=== PATIENT | female | born 2000 | race Caucasian/White ===

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

== ENCOUNTER 2022-09-15 06:02 | Emergency (ER) | payer OTHER ==
[2022-09-15 06:21] VITALS: BMI 30.7
[2022-09-15 07:41] VITALS: BP 119/68; PULSE 85; RESP 18; TEMP 98.7
[2022-09-15 10:31] LABS: INR 0.98 (0.83-1.09); PROTHROMBIN TIME (PATIENT) 11.4 SEC (9.7-13.0)
[2022-09-15 10:34] LABS: ACTIVATED PTT 28.9 SECONDS (25.2-36.5)
[2022-10-13] MEDS ORDERED: LABETALOL HCL 20 MG/4 ML VIAL ONE (00:16)
[2022-10-13] MEDS ORDERED: OXYTOCIN 20 UNITS in 0.9% NS 20 UNIT/1,000 ML INFUS.BAG IV ONE (04:32)
== END 2022-09-15 12:35 | disposition home or self-care (01) ==
LOC: JER 06:02
DX: O26.892 Other specified pregnancy related conditions, second trimester (principal); R40.0 Somnolence; Z3A.36 36 weeks gestation of pregnancy
CPT/HCPCS: 0241U-QW; 36415; 85384; 85610; 85730; 99283-25

== ENCOUNTER 2022-10-12 05:15 | Inpatient (IN) | payer OTHER ==
[2022-10-12] MEDS: ELECTROLYTE-148 SOLN 1,000 ML IV SCH ×3 (06:00→20:10)
[2022-10-12 06:11] VITALS: BMI 32.5
[2022-10-12 06:34] LABS: BASO % 0.4 % (0-2.0); EOS % 0.9 % (0-4.5); HEMATOCRIT 33.1 % (32.4-45.2); HEMOGLOBIN 11.7 GM/dL (10.7-15.3); LYMPH % 21.9 % (8-40); MCH 34.4 pg (25.7-33.7); MCHC 35.2 g/dl (32.0-36.0); MEAN CELL VOLUME 97.8 fl (80-96); MEAN PLT VOLUME 8.6 fl (7.5-11.1); MONO % 6.2 % (3.8-10.2); NEUT % 70.6 % (42.8-82.8); PLATELET COUNT 221 10^3/uL (134-434); RBC 3.39 M/mm3 (3.60-5.2); RDW 13.9 % (11.6-15.6); WHITE BLOOD COUNT 8.9 K/mm3 (4.0-10.0)
[2022-10-12] MEDS ORDERED: BUTORPHANOL TARTRATE 1 MG/ML VIAL IVPB ONE (06:46)
[2022-10-12] MEDS ORDERED: PROMETHAZINE HCL 25 MG/1 ML VIAL IVPB ONE (06:46)
[2022-10-12 06:48] LABS: INR 0.89 (0.83-1.09); PROTHROMBIN TIME (PATIENT) 10.3 SEC (9.7-13.0)
[2022-10-12 06:51] LABS: ACTIVATED PTT 27.1 SECONDS (25.2-36.5)
[2022-10-12 06:54] LABS: POTASSIUM 4.2 mmol/L (3.5-5.1)
[2022-10-12 06:56] LABS: CALCIUM 9.7 mg/dL (8.5-10.1)
[2022-10-12 06:57] LABS: ALBUMIN 2.6 g/dl (3.4-5.0)
[2022-10-12 07:00] LABS: CREATININE 0.5 mg/dL (0.55-1.3)
[2022-10-12 07:02] LABS: BILIRUBIN,TOTAL 0.3 mg/dL (0.2-1)
[2022-10-12] MEDS ORDERED: LABETALOL HCL 5 MG/1 ML (100MG/20 ML VIAL) IVPUSH ONE (07:37)
[2022-10-12] MEDS ORDERED: LABETALOL HCL 20 MG/4 ML VIAL ONE (07:48)
[2022-10-12] MEDS ORDERED: OXYTOCIN 30 UNITS in 0.9% NS 30 UNIT/500 ML INFUS.BAG IVPB SCH (09:00)
[2022-10-12 09:16] LABS: HIV INTERPRETATION NEGATIVE (NEGATIVE)
[2022-10-12] MEDS ORDERED: CEFAZOLIN SODIUM 2 GM in DEXTROSE 5%-WATER - 50 ML IVPB ONE (10:00)
[2022-10-12 10:24] LABS: URIC ACID 4.7 mg/dL (2.6-7.2)
[2022-10-12] MEDS ORDERED: OXYTOCIN 30 UNITS in 0.9% NS 30 UNIT/500 ML INFUS.BAG IVPB ONE (10:25)
[2022-10-12] MEDS ORDERED: FENTANYL/BUPIVACAINE/NS/PF - PCEA - 50 ML DISP.SYRIN EP ONE ×2 (15:30→20:19)
[2022-10-12] MEDS: FENTANYL/BUPIVACAINE/NS/PF - PCEA - 50 ML DISP.SYRIN EP SCH ×2 (16:00→20:25)
[2022-10-12] MEDS ORDERED: NALOXONE HCL 0.4 MG/ML VIAL IVPUSH PRN (16:08)
[2022-10-12] MEDS ORDERED: CEFAZOLIN SODIUM 2 GM VIAL ONE (16:53)
[2022-10-12] MEDS ORDERED: ceFAZolin SODIUM 1 GM VIAL ONE (18:37)
[2022-10-12] MEDS: CEFAZOLIN 1 GM in DEXTROSE 5%-WATER - 50 ML IVPB SCH (18:40)
[2022-10-12] MEDS ORDERED: LABETALOL HCL 100 MG TABLET (FP) ONE (21:18)
[2022-10-12] MEDS: LABETALOL HCL 200 MG TABLET (FP) PO PRN (21:20)
[2022-10-13] MEDS ORDERED: LABETALOL HCL 5 MG/1 ML (100MG/20 ML VIAL) IVPUSH STA (00:17)
[2022-10-13] MEDS ORDERED: FENTANYL/BUPIVACAINE/NS/PF - PCEA - 50 ML DISP.SYRIN EP ONE (00:22)
[2022-10-13] MEDS ORDERED: METHYLERGONOVINE MALEATE 0.2 MG/1 ML AMP IM PRN (00:35)
[2022-10-13] MEDS ORDERED: IBUPROFEN 800 MG/8 ML IJ IVPB PRN (00:35)
[2022-10-13] MEDS ORDERED: BENZOCAINE 20% 57 GM BOTTLE TP PRN (00:35)
[2022-10-13] MEDS ORDERED: ACETAMINOPHEN 325 MG TABLET (FP) PO PRN (00:35)
[2022-10-13] MEDS ORDERED: morphine SULFATE/PF 1 MG/2 ML (2cc Syringe - QUVA) ONE (03:10)
[2022-10-13] MEDS ORDERED: AZITHROMYCIN IVPB 500 MG/250 ML BAG IVPB ONE (03:55)
[2022-10-13] MEDS ORDERED: morphine SULFATE/PF 1 MG/2 ML (2cc Syringe - QUVA) EP ONE (04:30)
[2022-10-13] MEDS ORDERED: LACTATED RINGERS SOLUTION 1,000 ML/1,000 ML INFUS.BAG IV STA (04:31)
[2022-10-13] MEDS: CEFAZOLIN 1 GM in DEXTROSE 5%-WATER - 50 ML IVPB SCH ×3 (04:37→18:42)
[2022-10-13] MEDS ORDERED: ALBUMIN HUMAN 5% 500 ML IV SOLUTION IV ONE ×2 (04:45→05:15)
[2022-10-13] MEDS: OXYTOCIN 20 UNITS in 0.9% NS 20 UNIT/1,000 ML INFUS.BAG IV SCH ×2 (05:20→14:59)
[2022-10-13 05:39] LABS: CORD HCO3 22.4 mmHg (20-29); CORD PCO2 45.4 mmHg (30-78); CORD pH 7.311 (7.14-7.44)
[2022-10-13 05:42] LABS: CORD BASE EXCESS -1.2 mmol/L (0-2); CORD HCO3 25.8 mmHg (20-29); CORD PCO2 50.9 mmHg (30-78); CORD pH 7.322 (7.14-7.44)
[2022-10-13] MEDS: PRENATAL VITAMINS W/ FOLIC ACID TABLET (FP) PO SCH (10:31)
[2022-10-13] MEDS: SIMETHICONE 80 MG TAB.CHEW (FP) PO PRN ×2 (10:32→20:25)
[2022-10-13] MEDS: FERROUS SO4 325 MG TABLET (FP) PO SCH ×2 (10:57→21:35)
[2022-10-13] MEDS ORDERED: oxyCODONE HCL 5 MG TABLET PO PRN ×2 (12:35)
[2022-10-13] MEDS: IBUPROFEN 600 MG TABLET (FP) PO PRN (20:25)
[2022-10-14] MEDS ORDERED: BISACODYL 10 MG SUPP.RECT RC PRN (00:35)
[2022-10-14] MEDS: CEFAZOLIN 1 GM in DEXTROSE 5%-WATER - 50 ML IVPB SCH ×2 (01:04→09:42)
[2022-10-14] MEDS: IBUPROFEN 600 MG TABLET (FP) PO PRN ×3 (05:58→21:37)
[2022-10-14 08:51] LABS: BASO % 0.4 % (0-2.0); HEMOGLOBIN 8.7 GM/dL (10.7-15.3); LYMPH % 12.7 % (8-40); MCH 34.4 pg (25.7-33.7); MCHC 34.7 g/dl (32.0-36.0); MEAN CELL VOLUME 99.1 fl (80-96); MEAN PLT VOLUME 7.8 fl (7.5-11.1); MONO % 7.2 % (3.8-10.2); NEUT % 78.7 % (42.8-82.8); PLATELET COUNT 165 10^3/uL (134-434); RBC 2.52 M/mm3 (3.60-5.2); RDW 14.5 % (11.6-15.6); WHITE BLOOD COUNT 7.4 K/mm3 (4.0-10.0)
[2022-10-14] MEDS: SIMETHICONE 80 MG TAB.CHEW (FP) PO PRN ×2 (09:42→21:37)
[2022-10-14] MEDS: PRENATAL VITAMINS W/ FOLIC ACID TABLET (FP) PO SCH (09:42)
[2022-10-14] MEDS: FERROUS SO4 325 MG TABLET (FP) PO SCH ×2 (09:42→21:36)
[2022-10-14] MEDS ORDERED: IRON PO SCH (10:00)
[2022-10-14] MEDS ORDERED: DIGESTIVE PO SCH (10:00)
[2022-10-14] MEDS ORDERED: MV MN PO SCH (10:00)
[2022-10-14] MEDS ORDERED: [UNRECOGNIZED DRUG - OTHER] PO SCH (10:00)
[2022-10-14] MEDS ORDERED: HERBAL PO SCH (10:00)
[2022-10-14] MEDS: FENTANYL/BUPIVACAINE/NS/PF - PCEA - 50 ML DISP.SYRIN EP SCH (20:02)
[2022-10-14] MEDS: OXYTOCIN 20 UNITS in 0.9% NS 20 UNIT/1,000 ML INFUS.BAG IV SCH (20:04)
[2022-10-14] MEDS: LABETALOL HCL 200 MG TABLET (FP) PO PRN (21:37)
[2022-10-14 22:41] VITALS: RESP 18
[2022-10-15] MEDS: SIMETHICONE 80 MG TAB.CHEW (FP) PO PRN ×2 (08:39→21:20)
[2022-10-15] MEDS: IBUPROFEN 600 MG TABLET (FP) PO PRN ×2 (08:39→21:20)
[2022-10-15] MEDS: PRENATAL VITAMINS W/ FOLIC ACID TABLET (FP) PO SCH (10:06)
[2022-10-15] MEDS: FERROUS SO4 325 MG TABLET (FP) PO SCH ×2 (10:06→21:20)
[2022-10-15] MEDS: LABETALOL HCL 200 MG TABLET (FP) PO PRN (21:20)
[2022-10-16] MEDS: IBUPROFEN 600 MG TABLET (FP) PO PRN ×2 (06:00→09:00)
[2022-10-16] MEDS: SIMETHICONE 80 MG TAB.CHEW (FP) PO PRN ×2 (06:00→09:01)
[2022-10-16 07:16] LABS: BASO % 0.8 % (0-2.0); EOS % 2.1 % (0-4.5); HEMATOCRIT 26.2 % (32.4-45.2); HEMOGLOBIN 9.3 GM/dL (10.7-15.3); LYMPH % 26.1 % (8-40); MCH 35.3 pg (25.7-33.7); MCHC 35.4 g/dl (32.0-36.0); MEAN CELL VOLUME 99.7 fl (80-96); MEAN PLT VOLUME 8.4 fl (7.5-11.1); MONO % 5.3 % (3.8-10.2); NEUT % 65.7 % (42.8-82.8); PLATELET COUNT 234 10^3/uL (134-434); RBC 2.63 M/mm3 (3.60-5.2); RDW 13.9 % (11.6-15.6)
[2022-10-16] MEDS: PRENATAL VITAMINS W/ FOLIC ACID TABLET (FP) PO SCH (09:01)
[2022-10-16] MEDS: FERROUS SO4 325 MG TABLET (FP) PO SCH (09:01)
[2022-10-16 09:38] VITALS: BP 117/62; PULSE 78; TEMP 98
== END 2022-10-16 13:30 | disposition home or self-care (01) | DRG 540 ==
LOC: JLDR 05:15 → J3W 10-13 06:29
PROVIDERS: ADMIT Obstetrics & Gynecology; ATTEND Obstetrics & Gynecology
PROC: 10D00Z1 Extraction of Products of Conception, Low, Open Approach (ICD-10-PCS; principal; 2022-10-13)
DX: O62.1 Secondary uterine inertia (principal); O99.214 Obesity complicating childbirth; Z3A.39 39 weeks gestation of pregnancy; Z37.0 Single live birth
CPT/HCPCS: 36415; 36600; 80053; 82803; 82977; 83010; 84450; 84460; 84550; 85025; 85045; 85610; 85730; 86780; 86850; 86900; 86901; 87389; 88307-TC; C9803-CS; U0003; U0005